=== PATIENT | male | born 1970 | race Caucasian/White ===

== ENCOUNTER → 2021-08-25 | Outpatient (CLI) | payer OTHER ==
--- NOTE | 2021-08-25 15:12 | CONS ---
CONSULTATION DATE OF SERVICE: 08/25/2021 This 51-year-old gentleman has been evaluated in [facility] for possible obstructive sleep apnea-hypopnea syndrome. HISTORY OF PRESENT ILLNESS/SLEEP-WAKE EVALUATION: Patient's usual sleep schedule is from midnight until 7:30 or 8 a.m. on working days and from 2 a.m. until between 8 and 10 a.m. on weekends. He reported that he does have problems with falling asleep. He has a TV set in the bedroom. He usually sleeps on the back and side positions. He has loud snoring, witnessed episodes of stopped breathing during sleep, and awakenings from sleep up to 3 times with one episode of nocturia. He moves during the night all the time. Positive history of restless legs syndrome. No history of hypnagogic hallucinations, sleep paralysis or cataplexy. [place] Sleepiness Scale increased to 11, but usually the patient does not take any naps. PAST MEDICAL HISTORY: Positive for hyperlipidemia. MEDICATIONS: None. SOCIAL HISTORY: Positive for smoking marijuana. Alcohol consumption occasional. FAMILY HISTORY: Hypertension, heart problems, sinus problems, cancer, thyroid problems, restless legs. REVIEW OF SYSTEMS: Multiple awakenings from sleep, sleepiness during the day, loud snoring. No fevers. No double vision. No recent chest pain. No shortness of breath. No abdominal pain. No bleeding episodes. No blood in the urine. No seizure episodes. PHYSICAL EXAMINATION: GENERAL: Pleasant gentleman without distress. VITAL SIGNS: BP 132/85, HR 77, RR 18, height 5 feet 10 inches, weight 252.4 pounds, body mass index 36.1, temperature 97.1, oxygen saturation at room air 96%. HEENT: PERRLA, EOMI, evaluation of oropharynx showed tongue protrudes midline. Low position of soft palate; Mallampati III to IV. NECK: Supple, no JVD. Thyroid is not palpable. Neck is wide; 18-3/4 inches in circumference. LUNGS: Clear to percussion and to auscultation. Good air exchange. No wheezing or rhonchi. HEART: S1, S2 regular. No murmurs, gallops, or rubs. ABDOMEN: Soft and nontender. Bowel sounds are present. No organomegaly appreciated. EXTREMITIES: No clubbing or cyanosis. REGENERATION OPERATOR: Awake, alert, and oriented X3. Cranial nerves 2 to 7 intact. There is no fasciculation or atrophy. noted. No focal deficits observed. IMPRESSION: 1. Loud snoring, witnessed episodes of stopped breathing during sleep, low position of soft palate, Mallampati III to IV, wide neck, 18-3/4 inches in circumference, sleepiness, [place] Sleepiness Scale of 11; obstructive sleep apnea-hypopnea syndrome. 2. Obesity; BMI 36.1. 3. Hyperlipidemia. 4. Restless leg symptoms. PLAN: 1. Polysomnography for evaluation of patient's breathing during sleep. 2. CPAP/BiPAP titration if sleep study confirms obstructive sleep apnea-hypopnea syndrome. 3. Preferable position during sleep on the side. 4. No driving if patient feels any sleepiness. 5. I will see patient for follow up visit to explain results of testing and following plan. Thank you very much for referring this patient for consultation. Sincerely, Marco Donnelly MD, PhD, FAASM Diplomat of [place] [employer] Sleep Medicine [employer] of [place] [employer]per Loader Operator [facility] [place] MMODL / PRADEEPN: [id number] /
== END ==
LOC: SLEEP 13:37
PROVIDERS: ATTEND Internal Medicine
DX: G47.33 Obstructive sleep apnea (adult) (pediatric) (principal); E66.9 Obesity, unspecified; Z68.36 Body mass index [BMI] 36.0-36.9, adult; E78.5 Hyperlipidemia, unspecified; G25.81 Restless legs syndrome
CPT/HCPCS: 99202

== ENCOUNTER → 2022-03-01 | Outpatient (CLI) | payer OTHER ==
--- NOTE | 2022-03-01 17:30 | P.PN ---
Subjective DATE: 03/01/2022 FOLLOW UP VISIT. Patient with obstructive sleep apnea hypopnea syndrome return to sleep center for follow-up visit. Information from previous visit have been reviewed. This is first visit after patient received his CPAP unit. I discussed with patient results of previous sleep studies in details. Diagnostic polysomnogram showed severe sleep apnea with apnea-hypopnea index 33.6. Patient is using PAP equipment every night. The patient does not have significant problems with the mask, PAP unit and hum idification. Sometimes he wakes up in the middle of the night and feels that pressure is too high [place] sleepiness scale is 10, which is borderline. I checked PAP unit. PAP unit pressure 5-15, average 13.7 cm H2O. Usage is 90 % and about the 60% for more then 4 hours, average for hours per night. Leak is 16 l/m, which is in acceptable range. Apnea Hypopnea Index is 7.7, which is slightly above normal. MEDICATIONS: None During physical exam: GENERAL: A pleasant patient without any distress. VITAL SIGNS: BP 131/87, HR 73, RR 16 , weight 257.2, temperature 97.1, oxygen saturation at room air 95 % . HEENT: PERRLA, EOMI.low position of soft palate, Mallapati 3-4 . NECK: Supple. No JVD. LUNGS: Clear to percussion and to auscultation. Good air exchange. No wheezing or rhonchi. HEART: S1, S2 regular. ABDOMEN: Soft and nontender. Obese EXTREMITIES: No clubbing or cyanosis. MANDOLIN REPAIR PERSON: Awake, alert, and oriented x3. No focal deficit. Impressions: 1. Obstructive sleep apnea-hypopnea syndrome. Patient demonstrated borderline compliance with treatment, benefiting from treatment. Sometimes he feels that pressure is too high when he wakes up in the middle of the night. 2. Obesity. 3. Hyperlipidemia. 4. Restless leg symptoms. 5. Severe periodic limb movements by results of sleep test, no complaints of leg movements. Plan: 1. Continue using PAP equipment every night for the whole night. I changed regimen of the machine to Auto ramp. 2. To change air filter at least 1-2 times per month. 3. PAP unit should stay lower then position of the head. 4. Advised patient to remove all remaining water from humidifier canister daily and make it dry after each usage. Refill canister with fresh distilled water before each usage. 5. Sleep hygiene with regular time in bed for at least 8 hours. 6. Precautions related to driving. No driving if feel any sleepiness. 7. I will maintain prescription for PAP supplies including mask, tube, filters. 8. Follow up visit in 6 months or earlier if patient has any problems. 9. Watching and losing weight. Thank you very much for allowing me to participate in the management of your patient. aMrco Donnelly MD, PhD, FAASM. Diplomat of [place] [employer], Sleep Medicine Board by [employer] Professor Of [facility] [place]
== END ==
LOC: SLEEP 16:44
PROVIDERS: ATTEND Internal Medicine
DX: G47.33 Obstructive sleep apnea (adult) (pediatric) (principal); E66.9 Obesity, unspecified; E78.5 Hyperlipidemia, unspecified; G25.81 Restless legs syndrome; G47.61 Periodic limb movement disorder; Z99.89 Dependence on other enabling machines and devices